=== PATIENT | male | born 1970 | race Caucasian/White ===

== ENCOUNTER 2020-10-08 14:20 | Emergency (ER) | payer MEDICARE, OTHER ==
[~2020-10-08 14:20] MED LIST: 8 HOUR650 MG PO; ARGINAID POWDE1 EACH PO; ASCORBIC ACID500 MG GT; ASCORBIC ACID500 MG PEG; ASCORBIC ACID500 MG PO; ASPIRIN EC81 MG PO; ATARAX25 MG PO; BENADRYL25 MG PO; BENTYL10 MG PO; CARAFATE1 GM PO; CITRATE OF MAG296 ML PO; COLACE100 MG PO; CYMBALTA 30MG C30 MG GT; DICYCLOMINE HCL20 MG PO; DILAUDID2 MG GT; DITROPAN5 MG PO; DULOXETINE HCL30 MG GT; DUONEB 2.5-0.5M1 AMP INH; FEOSOL325 MG PO; FERROUS SU300 MG/5 M GT; FIORICET1 EACH PO; FLEXERIL10 MG PO; FLORASTOR250 MG PO; FOLIC ACID1 MG PO; INVANZ 1GM1 GM/VIAL IV; K-DUR20 MEQ PO; LOPRESSOR25 MG PO; MACROBID100 MG PO; MAG-OXIDE 400M400 MG PO; MELATONIN5 M2 PO; MESTINON60 MG PO; MILK OF MA400 MG/5 M PEG; MINIPRES1 MG PEG; MIRALAX17 GM GT; MIRALAX17 GM PO; MORPHINE 110 MG/0.5 PO; MORPHINE S10 MG/5 M1 PO; MYLICON80 MG PO; NEURONTIN100 MG PEG; ORAZINC220 MG PEG; ORAZINC220 MG PO; OXYCONTIN 10MG10 MG PO; PANTOPRAZOLE SO40 M2 GT; PEPCID AC20 MG GT; PHENERGAN25 M1 PO; PROAMATINE5 MG PO; PROTONIX 40MG T40 MG PO; RAMELTEON8 MG PEG; REFRESH DIGITA1 EACH EYEBOTH; REGLAN10 MG PO; SENNA LAXATIVE8.6 MG PEG; SODIUM BICARBO650 M1 PO; TAB-A-VITE1 EACH PO; TRAZODONE 50MG50 MG GT; TYLENOL160 MG/5 M GT; VICODIN 10/3251 EACH PO; VITAMIN D32000 UNI1 PO; WELLBUTRIN XL150 MG PO; XARELTO10 MG PO; ZINC30 M1 GT; ZOFRAN4 MG PO; [UNRECOGNIZED DRUG - OTHER] GT
[2020-10-08 17:04] LABS: BASOPHIL 2.6 % (0-2); EOSINOPHIL 4.4 % (0-5); HCT 31.4 % (42.0-52.0); HGB 9.7 g/dl (13.2-18.0); LYMPHOCYTE 24.5 % (15-48); MCH 26.7 pg (25.0-31.0); MCHC 30.9 g/dL (32.0-36.0); MCV 86.5 fL (78.0-100.0); NEUTROPHIL 45.5 % (41-80); NRBC 0.4; RBC 3.63 M/uL (4.70-6.00); RDW 22.5 % (11.5-14.0); WBC 4.5 K/uL (4.0-10.5)
[2020-10-08 17:10] LABS: PLT 632 K/uL (150-400)
[2020-10-08 17:21] LABS: INR 1.35 (0.9-1.2); PROTHROMBIN TIME 15.8 SECONDS (11.4-13.6); PTT 35.7 SECONDS (22.2-34.7)
[2020-10-08 17:48] LABS: ALBUMIN 1.3 g/dL (3.4-5.0); ALKALINE PHOSHATASE 332 U/L (46-116); ALT <6 U/L (16-63); AST 15 U/L (15-37); BILIRUBIN - TOTAL 0.6 mg/dL (0.2-1.0); BUN 9 mg/dL (7-18); BUN/CREAT RATIO (CALC) 23.7 RATIO; CHLORIDE 107 mmol/L (98-107); CO2 (BICARBONATE) 23 mmol/L (21-32); CREATININE 0.38 mg/dL (0.67-1.17); GLOBULIN (CALCULATION) 3.7 g/dL; GLUCOSE 113 mg/dL (74-106); POTASSIUM 3.3 mmol/L (3.5-5.1)
== END 2020-10-08 20:20 | disposition home or self-care (01) ==
LOC: FER 14:20
PROVIDERS: Emergency Medicine
DX: R07.9 Chest pain, unspecified (principal); G43.909 Migraine, unspecified, not intractable, without status migrainosus; R00.0 Tachycardia, unspecified; R06.02 Shortness of breath; R05 Cough; I11.0 Hypertensive heart disease with heart failure; I50.9 Heart failure, unspecified; E11.9 Type 2 diabetes mellitus without complications; J44.9 Chronic obstructive pulmonary disease, unspecified; Z88.0 Allergy status to penicillin; Z88.1 Allergy status to other antibiotic agents; Z88.2 Allergy status to sulfonamides; Z88.8 Allergy status to other drugs, medicaments and biological substances; Z91.041 Radiographic dye allergy status; Z91.048 Other nonmedicinal substance allergy status
CPT/HCPCS: 36415; 36430; 71045; 80053; 84145; 84484; 85025; 85610; 85730; 86850; 86900; 86901; 86922; 93005; J1170; J1200; J1940; J2550; J7050; P9016

== ENCOUNTER 2020-10-11 18:17 | Emergency (ER) | payer MEDICARE, OTHER ==
[2020-10-11 20:25] LABS: BASOPHIL 1.8 % (0-2); EOSINOPHIL 4.8 % (0-5); HCT 26.4 % (42.0-52.0); HGB 8.1 g/dl (13.2-18.0); LYMPHOCYTE 14.3 % (15-48); MCH 27.1 pg (25.0-31.0); MCHC 30.7 g/dL (32.0-36.0); MCV 88.3 fL (78.0-100.0); MONOCYTE 13.5 % (0-12); MPV 9.2 fL (6.0-9.5); NEUTROPHIL 61.3 % (41-80); NRBC 0; PLT 507 K/uL (150-400); RBC 2.99 M/uL (4.70-6.00); RDW 23.1 % (11.5-14.0)
[2020-10-11 20:43] LABS: ALBUMIN 1.2 g/dL (3.4-5.0); BILIRUBIN - TOTAL 0.3 mg/dL (0.2-1.0); BUN/CREAT RATIO (CALC) 28.9 RATIO; CREATININE 0.38 mg/dL (0.67-1.17); POTASSIUM 2.8 mmol/L (3.5-5.1); TOTAL PROTEIN 5.2 g/dL (6.4-8.2)
[2020-10-11 20:44] LABS: BILIRUBIN NEGATIVE (NEGATIVE); BLOOD 3+ Ery/uL (NEGATIVE); CLARITY HAZY (CLEAR); COLOR YELLOW (YELLOW); GLUCOSE (U) NORMAL (NORMAL); LEUKOCYTES TRACE Leu/uL (NEGATIVE); NITRITE NEGATIVE (NEGATIVE); PROTEIN NEGATIVE (NEGATIVE); SPECIFIC GRAVITY 1.025 (1.001-1.030); UROBILINOGEN 0.2 mg/dL (0.2-1.0); pH 5.5 (5.0-9.0)
[2020-10-11 20:47] LABS: LACTIC ACID 1.7 mmol/L (0.4-1.9)
[2020-10-11 20:49] LABS: BACTERIA TRACE; SQUAMOUS EPITHELIAL CELLS RARE
[2020-10-11 20:50] LABS: YEAST PRESENT
[2020-10-12] MEDS ORDERED: POTASSIUM20 MEQ/11 GT (00:46)
[2020-10-12] MEDS ORDERED: MYLICON80 MG PO (00:46)
== END 2020-10-12 01:54 | disposition home or self-care (01) ==
LOC: FER 18:17
PROVIDERS: Emergency Medicine Emergency Medical Services
DX: K59.00 Constipation, unspecified (principal); E87.6 Hypokalemia; N28.89 Other specified disorders of kidney and ureter; L89.229 Pressure ulcer of left hip, unspecified stage; L89.219 Pressure ulcer of right hip, unspecified stage; I10 Essential (primary) hypertension; J44.9 Chronic obstructive pulmonary disease, unspecified; Z93.3 Colostomy status; Z88.0 Allergy status to penicillin; Z88.1 Allergy status to other antibiotic agents; Z88.2 Allergy status to sulfonamides; Z88.8 Allergy status to other drugs, medicaments and biological substances; Z91.041 Radiographic dye allergy status; Z87.728 Personal history of other specified (corrected) congenital malformations of nervous system and sense organs; Z20.822 Contact with and (suspected) exposure to COVID-19
CPT/HCPCS: 36415; 71045; 80053; 81001; 82150; 83605; 84145; 84484; 85025; 87040; 87076; 87088; 93005; J1170; J2550; J3480; J7030; U0002

== ENCOUNTER 2020-10-17 17:47 | Inpatient (IN) | payer MEDICARE, OTHER ==
[~2020-10-17 17:47] MED LIST changes: +POTASSIUM20 MEQ/11 GT
[2020-10-17 19:25] LABS: BASOPHIL 1.2 % (0-2); HCT 23.1 % (42.0-52.0); HGB 7.1 g/dl (13.2-18.0); MCH 27.4 pg (25.0-31.0); MCHC 30.7 g/dL (32.0-36.0); MCV 89.2 fL (78.0-100.0); MONOCYTE 11.8 % (0-12); MPV 8.8 fL (6.0-9.5); NEUTROPHIL 72.5 % (41-80); NRBC 0; PLT 554 K/uL (150-400); RBC 2.59 M/uL (4.70-6.00); RDW 25.6 % (11.5-14.0)
[2020-10-17 19:41] LABS: INR 3.48 (0.9-1.2); PROTHROMBIN TIME 33.4 SECONDS (11.4-13.6)
[2020-10-17 19:48] LABS: ALBUMIN 1.1 g/dL (3.4-5.0); ALKALINE PHOSHATASE 509 U/L (46-116); ALT <6 U/L (16-63); AST 18 U/L (15-37); BILIRUBIN - TOTAL 0.3 mg/dL (0.2-1.0); BUN 11 mg/dL (7-18); BUN/CREAT RATIO (CALC) 26.2 RATIO; CHLORIDE 108 mmol/L (98-107); CO2 (BICARBONATE) 27 mmol/L (21-32); CREATININE 0.42 mg/dL (0.67-1.17); GLOBULIN (CALCULATION) 4.3 g/dL; GLUCOSE 102 mg/dL (74-106); POTASSIUM 2.8 mmol/L (3.5-5.1); TOTAL PROTEIN 5.4 g/dL (6.4-8.2)
[2020-10-17 20:11] LABS: PTT 112.4 SECONDS (22.2-34.7)
[2020-10-18] MEDS ORDERED: AZACTAM2 GM IV (03:37)
[2020-10-18] MEDS ORDERED: [UNRECOGNIZED DRUG - OTHER] TOP (03:38)
[2020-10-18] MEDS ORDERED: DAKIN'S 1/4 ST480 ML TOP (03:40)
[2020-10-18] MEDS ORDERED: VIBRAMYCIN100 MG PO (03:41)
[2020-10-18] MEDS ORDERED: METRONIDAZOLE500 MG PO (03:45)
[2020-10-18] MEDS ORDERED: MYLANTA MAXIMU355 ML GT (03:47)
[2020-10-18] MEDS ORDERED: PEPCID AC20 MG PO (03:49)
[2020-10-18] MEDS ORDERED: NYSTATIN1 EAC2 TOP (03:49)
[2020-10-18] MEDS ORDERED: PHENERGAN25 M1 PO (03:51)
[2020-10-18] MEDS ORDERED: PREVACID30 M1 PO (03:51)
[2020-10-18] MEDS ORDERED: SILVADENE20 GM TOP (03:52)
[2020-10-18] MEDS ORDERED: SODIUM BICARBO650 M1 PO (03:53)
[2020-10-18] MEDS ORDERED: TRAZODONE 100M100 MG GT (03:54)
[2020-10-18] MEDS ORDERED: ACETAMINOPHEN325 MG PO (03:55)
[2020-10-18] MEDS ORDERED: VANCOMYCIN1.5 GM/252 IV (03:56)
[2020-10-18 06:26] LABS: BASOPHIL 1.2 % (0-2); HCT 22.6 % (42.0-52.0); HGB 6.8 g/dl (13.2-18.0); LYMPHOCYTE 17.2 % (15-48); MCH 27.3 pg (25.0-31.0); MCHC 30.1 g/dL (32.0-36.0); MCV 90.8 fL (78.0-100.0); MONOCYTE 13.4 % (0-12); MPV 8.8 fL (6.0-9.5); NEUTROPHIL 64.2 % (41-80); NRBC 0.4; PLT 527 K/uL (150-400); RBC 2.49 M/uL (4.70-6.00); RDW 25.2 % (11.5-14.0)
[2020-10-18 07:27] LABS: ALBUMIN 1.1 g/dL (3.4-5.0); ALKALINE PHOSHATASE 536 U/L (46-116); ALT <6 U/L (16-63); AST 16 U/L (15-37); BILIRUBIN - TOTAL 0.3 mg/dL (0.2-1.0); BUN 11 mg/dL (7-18); BUN/CREAT RATIO (CALC) 28.2 RATIO; CHLORIDE 111 mmol/L (98-107); CO2 (BICARBONATE) 26 mmol/L (21-32); CREATININE 0.39 mg/dL (0.67-1.17); GLOBULIN (CALCULATION) 4.2 g/dL; GLUCOSE 90 mg/dL (74-106); MAGNESIUM 1.7 mg/dL (1.8-2.4); POTASSIUM 3.3 mmol/L (3.5-5.1); TOTAL PROTEIN 5.3 g/dL (6.4-8.2)
--- NOTE | 2020-10-18 17:35 | NUR ---
10/18/20 [facility] will accept back. A COVID test is not required. Discharge is anticipated for 10/19/20.
[2020-10-19 05:35] LABS: HCT 27.1 % (42.0-52.0); HGB 8.4 g/dl (13.2-18.0); MCH 27.9 pg (25.0-31.0); MPV 8.7 fL (6.0-9.5); RBC 3.01 M/uL (4.70-6.00); RDW 21.9 % (11.5-14.0)
[2020-10-19 05:45] LABS: INR 1.46 (0.9-1.2); PROTHROMBIN TIME 16.8 SECONDS (11.4-13.6)
[2020-10-19 05:50] LABS: BUN/CREAT RATIO (CALC) 32.4 RATIO; CREATININE 0.37 mg/dL (0.67-1.17); POTASSIUM 3.7 mmol/L (3.5-5.1)
[2020-10-19 05:52] LABS: MAGNESIUM 1.3 mg/dL (1.8-2.4)
[2020-10-19] MEDS ORDERED: DILAUDID2 MG GT (13:01)
[2020-10-19] MEDS ORDERED: CYMBALTA 30MG C30 MG GT (13:02)
[2020-10-19] MEDS ORDERED: NEURONTIN100 MG PEG (13:02)
[2020-10-19] MEDS ORDERED: RAMELTEON8 MG PEG (13:03)
[2020-10-19] MEDS ORDERED: TRAZODONE 100M100 MG GT (13:03)
[2020-10-19] MEDS ORDERED: MAG-OXIDE 400M400 MG PO (13:05)
--- NOTE | 2020-10-19 17:45 | NUR ---
DISCHARGE SUMMARY SENT TO [facility]. REPORT GIVEN. NURSE AT [facility] REQUESTED PORT A CATH BE LEFT ACCESSED FOR IV MEDS THERE. INFORMED PATIENT OF DISCHARGE.
--- NOTE | 2020-10-19 18:26 | NUR ---
TRANSPORTED BY EMS TO [facility].
== END 2020-10-19 18:28 | DRG 812 ==
LOC: FER 17:47 → FICU 22:35
PROVIDERS: Emergency Medicine; Nurse Practitioner; Nurse Practitioner Family; ADMIT Internal Medicine
PROC: 30233N1 Transfusion of Nonautologous Red Blood Cells into Peripheral Vein, Percutaneous Approach (ICD-10-PCS; principal; 2020-10-18)
DX: D64.9 Anemia, unspecified (principal); G82.20 Paraplegia, unspecified; M86.9 Osteomyelitis, unspecified; K21.9 Gastro-esophageal reflux disease without esophagitis; E83.42 Hypomagnesemia; Z20.822 Contact with and (suspected) exposure to COVID-19; I50.9 Heart failure, unspecified; M19.90 Unspecified osteoarthritis, unspecified site; I11.0 Hypertensive heart disease with heart failure; G47.00 Insomnia, unspecified; I48.91 Unspecified atrial fibrillation; L89.150 Pressure ulcer of sacral region, unstageable; Z86.718 Personal history of other venous thrombosis and embolism; F03.90 Unspecified dementia, unspecified severity, without behavioral disturbance, psychotic disturbance, mood disturbance, and anxiety; J44.9 Chronic obstructive pulmonary disease, unspecified; L89.890 Pressure ulcer of other site, unstageable; E87.6 Hypokalemia; E03.9 Hypothyroidism, unspecified; F32.9 Major depressive disorder, single episode, unspecified; Q05.9 Spina bifida, unspecified; I25.2 Old myocardial infarction; Z88.1 Allergy status to other antibiotic agents; Z88.2 Allergy status to sulfonamides; Z88.0 Allergy status to penicillin; Z88.8 Allergy status to other drugs, medicaments and biological substances; Z91.041 Radiographic dye allergy status; Z87.891 Personal history of nicotine dependence; Z90.49 Acquired absence of other specified parts of digestive tract; Z98.890 Other specified postprocedural states; Z89.422 Acquired absence of other left toe(s)
CPT/HCPCS: 36415; 36430; 71045; 76705; 80048; 80053; 80202; 83735; 84484; 85025; 85610; 85730; 86850; 86900; 86901; 86922; 93005; G0378; J1170; J2405; J2550; J3475; J3490; J7030; J7050; P9016; Q0163; U0002

== ENCOUNTER 2020-10-20 18:32 | Emergency (ER) | payer MEDICARE, OTHER ==
[~2020-10-20 18:32] MED LIST changes: +ACETAMINOPHEN325 MG PO; +AZACTAM2 GM IV; +DAKIN'S 1/4 ST480 ML TOP; +METRONIDAZOLE500 MG PO; +MYLANTA MAXIMU355 ML GT; +NYSTATIN1 EAC2 TOP; +PEPCID AC20 MG PO; +PREVACID30 M1 PO; +SILVADENE20 GM TOP; +TRAZODONE 100M100 MG GT; +VANCOMYCIN1.5 GM/252 IV; +VIBRAMYCIN100 MG PO; +[UNRECOGNIZED DRUG - OTHER] TOP
[2020-10-20 20:48] LABS: ALBUMIN 1.3 g/dL (3.4-5.0); ALKALINE PHOSHATASE 793 U/L (46-116); ALT <6 U/L (16-63); AST 27 U/L (15-37); BILIRUBIN - TOTAL 0.5 mg/dL (0.2-1.0); BUN 15 mg/dL (7-18); BUN/CREAT RATIO (CALC) 34.1 RATIO; CHLORIDE 107 mmol/L (98-107); CO2 (BICARBONATE) 20 mmol/L (21-32); CREATININE 0.44 mg/dL (0.67-1.17); GLOBULIN (CALCULATION) 4.8 g/dL; GLUCOSE 96 mg/dL (74-106); POTASSIUM 3.6 mmol/L (3.5-5.1); TOTAL PROTEIN 6.1 g/dL (6.4-8.2)
[2020-10-20 21:38] LABS: BASOPHIL 0.7 % (0-2); EOSINOPHIL 0.2 % (0-5); HCT 29.2 % (42.0-52.0); HGB 9.2 g/dl (13.2-18.0); MCHC 31.5 g/dL (32.0-36.0); MCV 88.8 fL (78.0-100.0); MONOCYTE 11.2 % (0-12); MPV 8.6 fL (6.0-9.5); NEUTROPHIL 80.2 % (41-80); NRBC 0.6; PLT 642 K/uL (150-400); RBC 3.29 M/uL (4.70-6.00); RDW 21.9 % (11.5-14.0); WBC 8.2 K/uL (4.0-10.5)
[2020-10-20 21:49] LABS: INR 1.37 (0.9-1.2); PTT 23.2 SECONDS (22.2-34.7)
[2020-10-21] MEDS ORDERED: CARAFATE S500 MG/TSP PO (00:54)
== END 2020-10-21 01:30 | disposition home or self-care (01) ==
LOC: FER 18:32
PROVIDERS: Emergency Medicine
DX: R07.89 Other chest pain (principal); R60.1 Generalized edema; R10.84 Generalized abdominal pain; R00.0 Tachycardia, unspecified; N28.89 Other specified disorders of kidney and ureter; R06.02 Shortness of breath; I11.0 Hypertensive heart disease with heart failure; I50.9 Heart failure, unspecified; I48.91 Unspecified atrial fibrillation; J44.9 Chronic obstructive pulmonary disease, unspecified; K21.9 Gastro-esophageal reflux disease without esophagitis; G82.20 Paraplegia, unspecified; L89.159 Pressure ulcer of sacral region, unspecified stage; Z79.899 Other long term (current) drug therapy
CPT/HCPCS: 36415; 71045; 80053; 83605; 83735; 84484; 85025; 85610; 85730; 93005; J1170; J1642; J1885; J1940; J2550; Q0169

== ENCOUNTER 2020-10-22 18:25 | Emergency (ER) | payer MEDICARE, OTHER ==
[~2020-10-22 18:25] MED LIST changes: +CARAFATE S500 MG/TSP PO
[2020-10-22 21:08] LABS: BASOPHIL 1.4 % (0-2); EOSINOPHIL 0.7 % (0-5); HCT 26.2 % (42.0-52.0); HGB 8.1 g/dl (13.2-18.0); LYMPHOCYTE 16.5 % (15-48); MCH 27.7 pg (25.0-31.0); MCHC 30.9 g/dL (32.0-36.0); MCV 89.7 fL (78.0-100.0); MONOCYTE 16.9 % (0-12); MPV 8.9 fL (6.0-9.5); NEUTROPHIL 63.6 % (41-80); NRBC 0.5; PLT 608 K/uL (150-400); RBC 2.92 M/uL (4.70-6.00); RDW 21.7 % (11.5-14.0); WBC 4.4 K/uL (4.0-10.5)
[2020-10-22 21:15] LABS: ALBUMIN 1.1 g/dL (3.4-5.0); ALKALINE PHOSHATASE 688 U/L (46-116); ALT <6 U/L (16-63); AST 16 U/L (15-37); BILIRUBIN - TOTAL 0.4 mg/dL (0.2-1.0); BUN 19 mg/dL (7-18); BUN/CREAT RATIO (CALC) 33.3 RATIO; CHLORIDE 108 mmol/L (98-107); CO2 (BICARBONATE) 22 mmol/L (21-32); CREATININE 0.57 mg/dL (0.67-1.17); GLOBULIN (CALCULATION) 4.2 g/dL; GLUCOSE 101 mg/dL (74-106); MAGNESIUM 1.4 mg/dL (1.8-2.4); POTASSIUM 2.8 mmol/L (3.5-5.1); TOTAL PROTEIN 5.3 g/dL (6.4-8.2)
== END 2020-10-23 03:30 | disposition home or self-care (01) ==
LOC: FER 18:25
PROVIDERS: Emergency Medicine
DX: I50.9 Heart failure, unspecified (principal); D64.9 Anemia, unspecified; E87.6 Hypokalemia; J44.9 Chronic obstructive pulmonary disease, unspecified; I48.91 Unspecified atrial fibrillation; Z88.0 Allergy status to penicillin; Z88.2 Allergy status to sulfonamides; Z88.1 Allergy status to other antibiotic agents; Z88.8 Allergy status to other drugs, medicaments and biological substances; Z91.018 Allergy to other foods
CPT/HCPCS: 36415; 71045; 80053; 83735; 83880; 84484; 85025; 93005; 93970; J1642; J3480

== ENCOUNTER 2020-10-23 18:16 | Emergency (ER) | payer MEDICARE, OTHER ==
[2020-10-23 20:46] LABS: BASOPHIL 1.1 % (0-2); EOSINOPHIL 0.7 % (0-5); HCT 28.2 % (42.0-52.0); HGB 8.6 g/dl (13.2-18.0); LYMPHOCYTE 13.4 % (15-48); MCH 27.9 pg (25.0-31.0); MCHC 30.5 g/dL (32.0-36.0); MCV 91.6 fL (78.0-100.0); MONOCYTE 15.4 % (0-12); MPV 8.7 fL (6.0-9.5); NEUTROPHIL 68.4 % (41-80); NRBC 0.5; PLT 641 K/uL (150-400); RBC 3.08 M/uL (4.70-6.00); WBC 6.1 K/uL (4.0-10.5)
[2020-10-23 21:17] LABS: ALBUMIN 1.2 g/dL (3.4-5.0); ALKALINE PHOSHATASE 1033 U/L (46-116); ALT <6 U/L (16-63); AST 22 U/L (15-37); BILIRUBIN - TOTAL 0.5 mg/dL (0.2-1.0); BUN 20 mg/dL (7-18); BUN/CREAT RATIO (CALC) 31.2 RATIO; CHLORIDE 107 mmol/L (98-107); CO2 (BICARBONATE) 23 mmol/L (21-32); CREATININE 0.64 mg/dL (0.67-1.17); GLOBULIN (CALCULATION) 4.4 g/dL; GLUCOSE 95 mg/dL (74-106); POTASSIUM 3.4 mmol/L (3.5-5.1); TOTAL PROTEIN 5.6 g/dL (6.4-8.2)
== END 2020-10-23 23:17 | disposition home or self-care (01) ==
LOC: FER 18:16
PROVIDERS: Nurse Practitioner Family
DX: R10.84 Generalized abdominal pain (principal); R31.9 Hematuria, unspecified; R11.0 Nausea; T14.8XXA Other injury of unspecified body region, initial encounter; I11.0 Hypertensive heart disease with heart failure; I50.9 Heart failure, unspecified; G82.20 Paraplegia, unspecified; J44.9 Chronic obstructive pulmonary disease, unspecified; Z86.14 Personal history of Methicillin resistant Staphylococcus aureus infection; Z90.49 Acquired absence of other specified parts of digestive tract; Z88.0 Allergy status to penicillin; Z88.2 Allergy status to sulfonamides; Z88.1 Allergy status to other antibiotic agents; Z88.8 Allergy status to other drugs, medicaments and biological substances; Z87.19 Personal history of other diseases of the digestive system; X58.XXXA Exposure to other specified factors, initial encounter
CPT/HCPCS: 36415; 80053; 83880; 85025; 96374; 96375; J1170; J2405

== ENCOUNTER 2020-10-27 06:14 | Emergency (ER) | payer MEDICARE, OTHER ==
[2020-10-27 07:06] LABS: BASOPHIL 0.1 % (0-2); EOSINOPHIL 0.2 % (0-5); LYMPHOCYTE 2.5 % (15-48); MCH 27.4 pg (25.0-31.0); MCHC 30.7 g/dL (32.0-36.0); MCV 89.3 fL (78.0-100.0); MONOCYTE 7.9 % (0-12); MPV 10.3 fL (6.0-9.5); NEUTROPHIL 87.1 % (41-80); NRBC 0.4; PLT 476 K/uL (150-400); RBC 1.68 M/uL (4.70-6.00); RDW 21.2 % (11.5-14.0); WBC 15.3 K/uL (4.0-10.5)
[2020-10-27 07:08] LABS: HGB 4.6 g/dl (13.2-18.0)
[2020-10-27 07:14] LABS: PROTHROMBIN TIME 21.6 SECONDS (11.4-13.6); PTT 31.1 SECONDS (22.2-34.7)
[2020-10-27 07:43] LABS: LACTIC ACID 1.2 mmol/L (0.4-1.9)
[2020-10-27 07:55] LABS: ALBUMIN 0.9 g/dL (3.4-5.0); ALKALINE PHOSHATASE 627 U/L (46-116); ALT <6 U/L (16-63); AMYLASE 171 U/L (25-115); AST 15 U/L (15-37); BILIRUBIN - TOTAL 0.4 mg/dL (0.2-1.0); BUN 30 mg/dL (7-18); BUN/CREAT RATIO (CALC) 20.4 RATIO; CHLORIDE 106 mmol/L (98-107); CO2 (BICARBONATE) 19 mmol/L (21-32); CREATININE 1.47 mg/dL (0.67-1.17); GLUCOSE 117 mg/dL (74-106); LDH 93 U/L (85-227); MAGNESIUM 1.6 mg/dL (1.8-2.4); PHOSPHORUS 2.2 mg/dL (2.6-4.7); POTASSIUM 2.7 mmol/L (3.5-5.1); TOTAL PROTEIN 3.9 g/dL (6.4-8.2)
[2020-10-27 10:10] LABS: CORONAVIRUS 2019 SARS-COV-2 POSITIVE (NEGATIVE); INFLUENZA A NAA NEGATIVE (NEGATIVE)
== END 2020-10-27 14:05 | disposition other institution (70) ==
LOC: FER 06:14
PROVIDERS: Emergency Medicine Emergency Medical Services
DX: R41.82 Altered mental status, unspecified (principal); D64.9 Anemia, unspecified; J93.9 Pneumothorax, unspecified; U07.1 COVID-19; I44.0 Atrioventricular block, first degree; L89.154 Pressure ulcer of sacral region, stage 4; M86.9 Osteomyelitis, unspecified; I11.0 Hypertensive heart disease with heart failure; I50.9 Heart failure, unspecified; G82.20 Paraplegia, unspecified; Z86.14 Personal history of Methicillin resistant Staphylococcus aureus infection; Z79.01 Long term (current) use of anticoagulants; Z88.0 Allergy status to penicillin; Z88.1 Allergy status to other antibiotic agents; Z88.8 Allergy status to other drugs, medicaments and biological substances; Z88.2 Allergy status to sulfonamides; Z91.041 Radiographic dye allergy status
CPT/HCPCS: 36415; 36430; 36600; 70450; 71045; 71250; 80053; 82150; 82728; 82803; 83605; 83615; 83735; 84100; 84145; 84484; 85025; 85610; 85730; 86850; 86900; 86901; 86922; 87040; 93005; 94002; 94760; 96365; 96367; 96375; 96376; J2020; J2250; J2310; J3010; J3370; J7030; J7050; P9016; U0002